=== PATIENT | male | born 1955 | race African-American/Black ===

== ENCOUNTER 2020-03-27 01:49 | Emergency (ER) | payer MEDICAID ==
[~2020-03-27] VITALS: Ht 190.5 cm; Wt 114.0 kg
[~2020-03-27 01:49] MED LIST: AMLO10TA80 PO; ASPI-1497 PO; ATOR40TA70 PO; DIVA-18 PO; OLAN10TA3 PO; WARF7.5T22 PO
[2020-03-27] MEDS ORDERED: ONDANSETRON HCL 4MG/2ML INJ IV STA (02:07)
[2020-03-27] MEDS ORDERED: SODIUM CHLORIDE 0.9% 1,000 ML IV ONE (02:07)
[2020-03-27] MEDS ORDERED: MORPHINE SULFATE 4 MG/ML CPJ (NOT FOR IM USE) IV STA (02:07)
[2020-03-27 02:39] LABS: BASOPHILS % 0.6 % (0.0-2.0); EOSINOPHILS % 2.3 % (0.0-5.0); HEMATOCRIT. 36.1 % (42.0-52.0); MEAN CORPUSCULAR HEMOGLOBIN 30.2 pg (28.0-32.0); MEAN CORPUSCULAR VOLUME 90.8 fL (80.0-94.0); MEAN PLATELET VOLUME 8.2 fl (7.4-10.4); MONOCYTES % 12.4 % (2.0-8.0); NEUTROPHILS % 52.7 % (40.0-76.0); PLATELET 181 x1000/uL (130-400); RED BLOOD CELL COUNT 3.98 mill/uL (4.7-6.1); RED CELL DISTRIBUTION WIDTH 15.6 % (11.6-14.6)
[2020-03-27 02:45] LABS: CHLORIDE 103 mEq/L (98-107)
[2020-03-27 02:49] LABS: ETHANOL BLOOD < 10 mg/dL
[2020-03-27] MEDS ORDERED: IOHEXOL-300 100 ML BOTTLE ONE (03:48)
[2020-03-27 06:27] VITALS: BP 146/84
== END 2020-03-27 06:34 | disposition home or self-care (01) ==
LOC: ER 01:49
DX: R10.9 Unspecified abdominal pain (principal); I10 Essential (primary) hypertension; T46.4X5A Adverse effect of angiotensin-converting-enzyme inhibitors, initial encounter; Z79.899 Other long term (current) drug therapy; Z79.82 Long term (current) use of aspirin; Z98.890 Other specified postprocedural states; Z93.3 Colostomy status
CPT/HCPCS: 36415; 74177; 80053; 80320; 83605; 83690; 85025; 93005; 96361; 96374; 96375; 99285; J2270; J2405; J7030; Q9967; G0480

== ENCOUNTER 2021-02-27 01:46 | Emergency (ER) | payer MEDICARE, MEDICAID ==
[~2021-02-27] VITALS: Ht 188 cm; Wt 137.0 kg
[~2021-02-27 01:46] MED LIST changes: +CARB-32 PO; +CARV6.2548 PO; +DIPH25TA23 PO; +FINA1TAB18 PO; +FURO40TA5 PO; +LOSA25TA26 PO; +OMEP20CA14 PO; +POTA20TA82 MT; +PRIM50TA31 PO; +QUET300T2 PO; +RIVA20TA MT; +TAMS-11 PO; -WARF7.5T22 PO
[2021-02-27] MEDS ORDERED: KETOROLAC 30MG/ML VIAL IV STA (03:04)
[2021-02-27 03:33] LABS: BASOPHILS % 0.7 % (0.0-2.0); EOSINOPHILS % 4.5 % (0.0-5.0); HEMATOCRIT. 35.2 % (42.0-52.0); HEMOGLOBIN. 11.8 g/dL (14.0-18.0); LYMPHOCYTES % 42.9 % (20.0-50.0); MEAN CORPUSCULAR HEMOGLOBIN 30.9 pg (28.0-32.0); MEAN CORPUSCULAR VOLUME 92.4 fL (80.0-94.0); MONOCYTES % 11.2 % (2.0-8.0); NEUTROPHILS % 40.7 % (40.0-76.0); PLATELET 174 x1000/uL (130-400); RED BLOOD CELL COUNT 3.81 mill/uL (4.7-6.1); RED CELL DISTRIBUTION WIDTH 16.5 % (11.6-14.6)
[2021-02-27 03:41] LABS: CHLORIDE 104 mEq/L (98-107)
[2021-02-27 03:46] LABS: INR 1.2; PARTIAL THROMBOPLASTIN TIME 29.8 sec (23.4-31.0); PROTHROMBIN TIME 12.4 sec (9.6-11.0)
[2021-02-27 05:32] LABS: CLARITY URINE CLEAR (CLEAR); COLOR URINE YELLOW (YELLOW); KETONES URINE NEGATIVE (NEGATIVE); LEUKOCYTE ESTERASE URINE NEGATIVE (NEGATIVE); NITRITE URINE NEGATIVE (NEGATIVE); OCCULT BLOOD URINE NEGATIVE (NEGATIVE); PH URINE 5.5 (4.5-8.0); PROTEIN URINE NEGATIVE (NEGATIVE); UROBILINOGEN URINE 0.2 E.U./dL (0.2-1.0)
[2021-02-27] MEDS ORDERED: HYDROCODONE/ACETAMINOPHEN 5/325MG TABLET PO PRN (06:00)
[2021-02-27 08:10] VITALS: BP 119/81
== END 2021-02-27 08:40 | disposition home or self-care (01) ==
LOC: ER 01:46
DX: M54.89 Other dorsalgia (principal); I10 Essential (primary) hypertension; E66.9 Obesity, unspecified; Z68.38 Body mass index [BMI] 38.0-38.9, adult; Z86.73 Personal history of transient ischemic attack (TIA), and cerebral infarction without residual deficits; Z95.1 Presence of aortocoronary bypass graft; Z88.8 Allergy status to other drugs, medicaments and biological substances; Z79.82 Long term (current) use of aspirin; W01.0XXA Fall on same level from slipping, tripping and stumbling without subsequent striking against object, initial encounter; Y93.89 Activity, other specified; Y92.018 Other place in single-family (private) house as the place of occurrence of the external cause
CPT/HCPCS: 36415; 70450; 71045; 72125; 72128; 72131; 72170; 80053; 81003; 83690; 85025; 85610; 85730; 86850; 86900; 86901; 96374; 99285; J1885

== ENCOUNTER 2021-05-11 20:39 | Inpatient (IN) | payer MEDICARE, MEDICAID ==
[~2021-05-11] VITALS: Ht 188 cm; Wt 135.3 kg
[2021-05-11] MEDS ORDERED: ASPIRIN 81MG TABLET PO ONE (21:30)
[2021-05-11] MEDS ORDERED: NITROGLYCERIN 0.4MG TABLET SL SL PRN (21:30)
[2021-05-11 23:11] LABS: BASOPHILS % 0.6 % (0.0-2.0); EOSINOPHILS % 4.7 % (0.0-5.0); HEMOGLOBIN. 11.6 g/dL (14.0-18.0); LYMPHOCYTES % 34.5 % (20.0-50.0); MEAN CORPUSCULAR HEMOGLOBIN 31.4 pg (28.0-32.0); MEAN CORPUSCULAR VOLUME 91.9 fL (80.0-94.0); MEAN PLATELET VOLUME 8.4 fl (7.4-10.4); MONOCYTES % 10.5 % (2.0-8.0); NEUTROPHILS % 49.7 % (40.0-76.0); PLATELET 173 x1000/uL (130-400); RED CELL DISTRIBUTION WIDTH 15.6 % (11.6-14.6)
[2021-05-11 23:12] LABS: CHLORIDE 103 mEq/L (98-107)
[2021-05-12] MEDS ORDERED: MORPHINE SULFATE 2 MG/ML CPJ (NOT FOR IM USE) IV ONE (07:15)
[2021-05-12 12:00] VITALS: BP 184/118
[2021-05-12] MEDS ORDERED: MAGNESIUM/ALUMINUM HYDROXIDE/SIMETHICONE 30ML UDC PO PRN (12:15)
[2021-05-12] MEDS ORDERED: ACETAMINOPHEN 325MG TABLET PO PRN (12:15)
[2021-05-12] MEDS ORDERED: ONDANSETRON HCL 4MG/2ML INJ IV PRN (12:15)
[2021-05-12] MEDS ORDERED: IPRATROPIUM/ALBUTEROL 0.5-3(2.5)MG/3ML NEB HHN PRN (12:15)
[2021-05-12] MEDS ORDERED: CLONIDINE 0.1MG TABLET PO PRN (12:15)
[2021-05-12] MEDS ORDERED: DOCUSATE SODIUM 100MG CAPSULE PO PRN (12:15)
[2021-05-12] MEDS: OLANZAPINE 10MG TABLET PO SCH ×2 (15:25→21:41)
[2021-05-12] MEDS: DIVALPROEX SODIUM 500MG DR TABLET PO SCH ×2 (15:25→21:40)
[2021-05-12] MEDS: AMLODIPINE 10MG TABLET PO SCH (15:26)
[2021-05-12] MEDS: POTASSIUM CHLORIDE 20MEQ TABLET SR PO SCH (15:27)
[2021-05-12] MEDS: LOSARTAN POTASSIUM 25 MG TABLET PO SCH (15:27)
[2021-05-12] MEDS: FINASTERIDE 5MG TABLET PO SCH (15:27)
[2021-05-12] MEDS: CARBIDOPA/LEVODOPA 25/100MG TABLET PO SCH ×2 (15:27→17:00)
[2021-05-12] MEDS: OMEPRAZOLE 20MG CAPSULE EXTENDED RELEASE PO SCH (15:28)
[2021-05-12] MEDS: CARVEDILOL 6.25 MG TABLET PO SCH ×2 (15:28→21:40)
[2021-05-12 16:00] VITALS: BP 173/110
[2021-05-12] MEDS: FUROSEMIDE 40MG TABLET PO SCH (19:00)
[2021-05-12 20:00] VITALS: BP 163/111
[2021-05-12] MEDS: ATORVASTATIN CALCIUM 40MG TABLET PO SCH (21:40)
[2021-05-12] MEDS: TAMSULOSIN HCL 0.4MG SR CAPSULE PO SCH (21:40)
[2021-05-12] MEDS: PRIMIDONE 50MG TABLET PO SCH (21:41)
[2021-05-12] MEDS: HYDROCODONE/ACETAMINOPHEN 5/325MG TABLET PO PRN (23:29)
[2021-05-13] VITALS: BP 167/91
[2021-05-13 04:00] VITALS: BP 137/83
[2021-05-13 06:16] LABS: BASOPHILS % 0.5 % (0.0-2.0); EOSINOPHILS % 3.5 % (0.0-5.0); HEMATOCRIT. 35.3 % (42.0-52.0); HEMOGLOBIN. 11.8 g/dL (14.0-18.0); LYMPHOCYTES % 33.7 % (20.0-50.0); MEAN CORPUSCULAR HEMOGLOBIN 30.8 pg (28.0-32.0); MEAN CORPUSCULAR VOLUME 92.6 fL (80.0-94.0); MEAN PLATELET VOLUME 9.1 fl (7.4-10.4); MONOCYTES % 9.4 % (2.0-8.0); NEUTROPHILS % 52.9 % (40.0-76.0); PLATELET 185 x1000/uL (130-400); RED BLOOD CELL COUNT 3.81 mill/uL (4.7-6.1); RED CELL DISTRIBUTION WIDTH 15.3 % (11.6-14.6)
[2021-05-13 06:30] LABS: CHLORIDE 100 mEq/L (98-107)
[2021-05-13] MEDS: OMEPRAZOLE 20MG CAPSULE EXTENDED RELEASE PO SCH (06:41)
[2021-05-13] MEDS: FUROSEMIDE 40MG TABLET PO SCH ×2 (06:41→17:11)
[2021-05-13 07:02] LABS: PHOSPHORUS 2.8 mg/dL (2.5-4.9)
[2021-05-13 07:04] LABS: LDL CHOLESTEROL 96 mg/dL (5-100)
[2021-05-13 07:05] LABS: HDL CHOLESTEROL 47 mg/dL (40-59)
[2021-05-13 07:07] LABS: T4 FREE 0.81 ng/dL (0.76-1.46)
[2021-05-13 08:00] VITALS: BP 152/86
[2021-05-13] MEDS: CARVEDILOL 6.25 MG TABLET PO SCH ×2 (10:11→20:39)
[2021-05-13] MEDS: AMLODIPINE 10MG TABLET PO SCH (10:11)
[2021-05-13] MEDS: FINASTERIDE 5MG TABLET PO SCH (10:11)
[2021-05-13] MEDS: CARBIDOPA/LEVODOPA 25/100MG TABLET PO SCH ×3 (10:12→17:11)
[2021-05-13] MEDS: POTASSIUM CHLORIDE 20MEQ TABLET SR PO SCH (10:12)
[2021-05-13] MEDS: DIVALPROEX SODIUM 500MG DR TABLET PO SCH ×2 (10:12→20:40)
[2021-05-13] MEDS: OLANZAPINE 10MG TABLET PO SCH ×2 (10:12→20:41)
[2021-05-13] MEDS: LOSARTAN POTASSIUM 25 MG TABLET PO SCH ×2 (10:12→20:40)
[2021-05-13 12:00] VITALS: BP 153/96
[2021-05-13] MEDS ORDERED: NALOXONE HCL 0.4MG/ML VIAL IV PRN (12:00)
[2021-05-13] MEDS: ENOXAPARIN 40MG/0.4ML SYR SUBCUT SCH ×2 (13:05→20:41)
[2021-05-13] MEDS: HYDROCODONE/ACETAMINOPHEN 5/325MG TABLET PO PRN ×2 (14:14→20:42)
[2021-05-13 16:00] VITALS: BP 134/87
[2021-05-13 20:00] VITALS: BP_SYST 143; BP_SYST 153; BP_DIAS 90; BP_DIAS 94
[2021-05-13] MEDS: TAMSULOSIN HCL 0.4MG SR CAPSULE PO SCH (20:40)
[2021-05-13] MEDS: ATORVASTATIN CALCIUM 40MG TABLET PO SCH (20:40)
[2021-05-13] MEDS: PRIMIDONE 50MG TABLET PO SCH (20:40)
[2021-05-14] VITALS: BP 149/93
[2021-05-14 04:00] VITALS: BP 151/102
[2021-05-14] MEDS: HYDROCODONE/ACETAMINOPHEN 5/325MG TABLET PO PRN ×2 (05:02→10:15)
[2021-05-14] MEDS: FUROSEMIDE 40MG TABLET PO SCH ×2 (05:21→17:08)
[2021-05-14 08:18] LABS: BASOPHILS % 0.4 % (0.0-2.0); EOSINOPHILS % 4.2 % (0.0-5.0); HEMOGLOBIN. 13.1 g/dL (14.0-18.0); LYMPHOCYTES % 37.8 % (20.0-50.0); MEAN CORPUSCULAR HEMOGLOBIN 30.7 pg (28.0-32.0); MEAN CORPUSCULAR VOLUME 91.8 fL (80.0-94.0); MEAN PLATELET VOLUME 9.3 fl (7.4-10.4); MONOCYTES % 12.4 % (2.0-8.0); NEUTROPHILS % 45.2 % (40.0-76.0); PLATELET 198 x1000/uL (130-400); RED BLOOD CELL COUNT 4.25 mill/uL (4.7-6.1); RED CELL DISTRIBUTION WIDTH 15.3 % (11.6-14.6)
[2021-05-14 08:35] LABS: CHLORIDE 98 mEq/L (98-107)
[2021-05-14] MEDS: CARVEDILOL 6.25 MG TABLET PO SCH ×2 (10:15→20:49)
[2021-05-14] MEDS: DIVALPROEX SODIUM 500MG DR TABLET PO SCH ×2 (10:15→20:49)
[2021-05-14] MEDS: LOSARTAN POTASSIUM 25 MG TABLET PO SCH ×2 (10:15→20:49)
[2021-05-14] MEDS: OLANZAPINE 10MG TABLET PO SCH ×2 (10:15→20:50)
[2021-05-14] MEDS: FINASTERIDE 5MG TABLET PO SCH (10:15)
[2021-05-14] MEDS: POTASSIUM CHLORIDE 20MEQ TABLET SR PO SCH (10:15)
[2021-05-14] MEDS: FAMOTIDINE 20MG TABLET PO SCH ×2 (10:16→20:49)
[2021-05-14] MEDS: CARBIDOPA/LEVODOPA 25/100MG TABLET PO SCH ×3 (10:16→17:08)
[2021-05-14] MEDS: ENOXAPARIN 40MG/0.4ML SYR SUBCUT SCH ×2 (10:16→20:50)
[2021-05-14] MEDS: AMLODIPINE 10MG TABLET PO SCH (10:16)
[2021-05-14 12:00] VITALS: BP 141/81
[2021-05-14 16:00] VITALS: BP 139/78
[2021-05-14 18:50] VITALS: BP 139/71
[2021-05-14 20:00] VITALS: BP 120/78
[2021-05-14] MEDS: ATORVASTATIN CALCIUM 40MG TABLET PO SCH (20:49)
[2021-05-14] MEDS: TAMSULOSIN HCL 0.4MG SR CAPSULE PO SCH (20:49)
[2021-05-14] MEDS: PRIMIDONE 50MG TABLET PO SCH (20:50)
[2021-05-15] VITALS: BP 120/70
[2021-05-15] MEDS: HYDROCODONE/ACETAMINOPHEN 5/325MG TABLET PO PRN (01:51)
[2021-05-15 04:00] VITALS: BP 151/54
== END 2021-05-15 04:44 | disposition home or self-care (01) | DRG 48 ==
LOC: ER 20:39 → 7EST 05-12 01:58 → EDBEDREQ 05-12 02:10 → EDBEDREQDT 05-12 02:10 → EDBEDREQTM 05-12 02:10 → EDBEDREQSVC 05-12 02:10 → ENRESERV 05-12 07:43 → 7WST 05-14 14:55 → 7EST 05-14 23:04
PROVIDERS: ADMIT Internal Medicine; ATTEND Internal Medicine
PROC: 4A10X4Z Monitoring of Central Nervous Electrical Activity, External Approach (ICD-10-PCS; principal; 2021-05-13)
DX: G90.8 Other disorders of autonomic nervous system (principal); B20 Human immunodeficiency virus [HIV] disease; E66.2 Morbid (severe) obesity with alveolar hypoventilation; G20 Parkinson's disease; S20.219A Contusion of unspecified front wall of thorax, initial encounter; D64.9 Anemia, unspecified; E78.5 Hyperlipidemia, unspecified; F17.210 Nicotine dependence, cigarettes, uncomplicated; I11.0 Hypertensive heart disease with heart failure; I25.10 Atherosclerotic heart disease of native coronary artery without angina pectoris; I25.5 Ischemic cardiomyopathy; I44.7 Left bundle-branch block, unspecified; I50.22 Chronic systolic (congestive) heart failure; J44.9 Chronic obstructive pulmonary disease, unspecified; N40.0 Benign prostatic hyperplasia without lower urinary tract symptoms; W07.XXXA Fall from chair, initial encounter; I45.10 Unspecified right bundle-branch block; Z68.38 Body mass index [BMI] 38.0-38.9, adult; Z79.01 Long term (current) use of anticoagulants; Z79.899 Other long term (current) drug therapy; Z86.711 Personal history of pulmonary embolism; Z86.718 Personal history of other venous thrombosis and embolism; Z91.81 History of falling; Z95.1 Presence of aortocoronary bypass graft; Z88.8 Allergy status to other drugs, medicaments and biological substances; Z79.84 Long term (current) use of oral hypoglycemic drugs; Y93.89 Activity, other specified; Y92.89 Other specified places as the place of occurrence of the external cause; Y99.8 Other external cause status; I69.320 Aphasia following cerebral infarction
CPT/HCPCS: 36415; 71045; 80048; 80053; 80061; 82140; 83735; 83880; 84100; 84439; 84443; 84484; 85025; 93005; 93306; 93970; 95816; 97162; 97166; 99285; J1650; J2270

== ENCOUNTER 2024-11-20 14:14 | Emergency (ER) | payer MEDICARE, MEDICAID ==
[~2024-11-20] VITALS: Ht 188 cm; Wt 130.0 kg
[~2024-11-20 14:14] MED LIST changes: +APIX5TAB MT; +FINA1TAB14 PO; -FINA1TAB18 PO; +POTA-205 MT; -POTA20TA82 MT; -PRIM50TA31 PO; +PRIM50TA5 PO; -RIVA20TA MT; +SIME80TA16 PO; -TAMS-11 PO; +TAMS-54 PO
[2024-11-20 14:15] VITALS: O2SAT 100
[2024-11-20] MEDS: MORPHINE SULFATE 4 MG/ML INJ (FOR IV/IM USE) IV STA (14:57)
[2024-11-20] MEDS: ONDANSETRON HCL 4MG/2ML INJ IV STA (14:57)
[2024-11-20 15:09] LABS: BASOPHILS % 0.8 % (0.0-2.0); EOSINOPHILS % 3.4 % (0.0-5.0); HEMATOCRIT. 36.9 % (42.0-52.0); HEMOGLOBIN. 12.3 g/dL (14.0-18.0); LYMPHOCYTES % 43.6 % (20.0-50.0); MEAN CORPUSCULAR HEMOGLOBIN 30.2 pg (28.0-32.0); MEAN CORPUSCULAR HGB CONC 33.4 g/dL (31.0-37.0); MEAN CORPUSCULAR VOLUME 90.3 fL (80.0-94.0); MEAN PLATELET VOLUME 8.9 fl (7.4-10.4); MONOCYTES % 10.4 % (2.0-8.0); NEUTROPHILS % 41.8 % (40.0-76.0); PLATELET 165 x1000/uL (130-400); RED BLOOD CELL COUNT 4.09 mill/uL (4.7-6.1); RED CELL DISTRIBUTION WIDTH 16.3 % (11.6-14.6); WHITE BLOOD COUNT 3.7 x1000/uL (4.5-11.0)
[2024-11-20 15:15] LABS: CARBON DIOXIDE 23 mEq/L (21-32); CHLORIDE 109 mEq/L (98-107); POTASSIUM 2.9 mEq/L (3.5-5.1); SODIUM 142 mEq/L (136-145)
[2024-11-20 15:16] LABS: CALCIUM 7.4 mg/dL (8.7-10.4)
[2024-11-20 15:21] LABS: ETHANOL BLOOD < 10 mg/dL (<10); GLUCOSE 96 mg/dL (70-105); UREA NITROGEN BLOOD 19 mg/dL (9-23)
[2024-11-20 15:22] LABS: ALANINE AMINOTRANSFERASE 8 IU/L (10-49); ALBUMIN 3.4 g/dL (3.2-4.8); ASPARTATE AMINOTRANSFERASE 12 IU/L (<34)
[2024-11-20 15:23] LABS: BILIRUBIN DIRECT 0.1 mg/dL (<=3.0); BILIRUBIN TOTAL 0.4 mg/dL (0.1-1.0); PROTEIN TOTAL 6.2 g/dL (6.0-8.3)
[2024-11-20 15:28] LABS: TROPONIN I HIGH SENSITIVITY 55 ng/L (3.0-53)
[2024-11-20] MEDS: POTASSIUM CHLORIDE 20MEQ TABLET SR PO ONE ×2 (15:36→20:53)
[2024-11-20] MEDS: SODIUM CHLORIDE 0.9% 500 ML IV ONE (16:56)
[2024-11-20] MEDS: KCL 20MEQ/100ML PREMIX 100 ML IV SCH (16:56)
[2024-11-20 17:50] LABS: CLARITY URINE CLEAR (CLEAR); COLOR URINE YELLOW (YELLOW); GLUCOSE URINE 3+ (NEGATIVE); KETONES URINE NEGATIVE (NEGATIVE); LEUKOCYTE ESTERASE URINE NEGATIVE (NEGATIVE); NITRITE URINE NEGATIVE (NEGATIVE); OCCULT BLOOD URINE NEGATIVE (NEGATIVE); PROTEIN URINE NEGATIVE (NEGATIVE); SPECIFIC GRAVITY URINE 1.017 (1.005-1.030); UROBILINOGEN URINE 0.2 E.U./dL (0.2-1.0)
[2024-11-20 18:05] LABS: *AMPHETAMINES SCREEN URINE NEGATIVE (NEGATIVE); *BARBITURATES SCREEN URINE NEGATIVE (NEGATIVE); *BENZODIAZEPINES SCREEN URINE NEGATIVE (NEGATIVE); *COCAINE SCREEN URINE NEGATIVE (NEGATIVE); CANNABINOID URINE SCREEN NEGATIVE (NEGATIVE); ECSTASY MDMA SCREEN URINE NEGATIVE (NEGATIVE); METHADONE URINE SCREEN NEGATIVE (NEGATIVE); OPIATES URINE SCREEN PRESUMPTIVE POSITIVE (NEGATIVE); PHENCYCLIDINE URINE SCREEN NEGATIVE (NEGATIVE)
[2024-11-20 18:18] LABS: BACTERIA URINE TRACE; RBC URINE 0-2 /hpf (0-2); SQUAMOUS EPITHELIAL CELL URINE 2+ /lpf (RARE/1+); WBC URINE 0-2 /hpf (0-2)
[2024-11-20 18:35] LABS: PROTHROMBIN TIME 11.2 sec (9.6-11.0)
[2024-11-20 18:42] LABS: TROPONIN I HIGH SENSITIVITY 60 ng/L (3.0-53)
[2024-11-20] MEDS: MORPHINE SULFATE 4 MG/ML INJ (FOR IV/IM USE) IV NR (19:54)
[2024-11-20 20:20] VITALS: BP 109/74; PULSE 77; RESP 14; TEMP 36.7; O2SAT 96
[2024-11-21] MEDS ORDERED: IOHEXOL-300 100 ML BOTTLE ONE (07:07)
== END 2024-11-21 01:36 | disposition home or self-care (01) ==
LOC: ER 14:23
DX: R10.12 Left upper quadrant pain (principal); R10.11 Right upper quadrant pain; E87.6 Hypokalemia; R79.89 Other specified abnormal findings of blood chemistry; Z86.73 Personal history of transient ischemic attack (TIA), and cerebral infarction without residual deficits; E11.9 Type 2 diabetes mellitus without complications; I10 Essential (primary) hypertension; Z93.3 Colostomy status; Z79.01 Long term (current) use of anticoagulants; Z79.82 Long term (current) use of aspirin; Z79.899 Other long term (current) drug therapy
CPT/HCPCS: 80076; 80305; 80048; 81003; 80320; 83690; 85025; 85610; 84484; 36415; 74177; 93005; 96365; 96366; 96375; 96376; 99285; J2405; J3480; J2270; J7040; Q9967; G0480